=== PATIENT | male | born 1995 | race Caucasian/White ===

== ENCOUNTER 2019-11-30 10:31 | Inpatient (IN) | payer OTHER ==
--- NOTE | 2019-11-30 10:57 | BHS.RME ---
Substance Use & Tx History - Substance Use History Alcohol Substance amount: 1 pint Frequency of use: Less than 3 times per week Date of Last Use: 11/27/19 Cocaine (Crack) Substance amount: 1-2 bags Frequency of use: Less than 3 times per week Date of Last Use: 11/27/19 Opiates (Heroin) Substance amount: 10 bags Frequency of use: Daily Substance route: Injection (ex: intravenous or skin popping) Date of Last Use: 11/29/19 PCP Frequency of use: Once a month Date of Last Use: 11/16/19 Physical/Psych/Mental Status - Behavior General Behavior: Increased activity (restlessness, agitation) Eye Contact: Normal - Cooperativeness Cooperativeness: Cooperative - Thinking Thought Processes: Tight, Logical, Goal Directed Thought content: Future oriented - Physical Health Problems Is patient presently having any pain?: No Does patient presently have any injuries (include location): No Does patient currently have a fever: No Is patient : No COWS - Scale Resting Pulse: 1= [place] 81-100 Sweatin= Chills/Flushing Restless Observation: 1= Difficult to Sit Still Pupil Size: 0= Normal to Room Light Bone or Joint Aches: 1= Mild Discomfort
[2019-11-30 11:09] VITALS: BMI 20.5
--- NOTE | 2019-11-30 11:35 | HP ---
COWS - Scale Resting Pulse: 1= [place] 81-100 Sweatin= Chills/Flushing Restless Observation: 1= Difficult to Sit Still Pupil Size: 0= Normal to Room Light Bone or Joint Aches: 1= Mild Discomfort Runny Nose/ Eye Tearin= Nasal Congestion GI Upset > 30mins: 0= None Tremor Observation: 0= None Yawning Observation: 0= None Anxiety or Irritability: 2=Irritable/Anxious Goose Flesh Skin: 3=Piloerection COWS Score: 10 CIWA Score - Admission Criteria OASAS Guidelines: Admission for Medically Managed Detox: Requires at least one of the followin. CIWA greater than 12 2. Seizures within the past 24 hours 3. Delirium tremens within the past 24 hours 4. Hallucinations within the past 24 hours 5. Acute intervention needed for co occurring medical disorder 6. Acute intervention needed for co occurring psychiatric disorder 7. Severe withdrawal that cannot be handled at a lower level of care (continued vomiting, continued diarrhea, abnormal vital signs) requiring intravenous medication and/or fluids 8. Admitting History and Physical - Admission Chief Complaint: " I want to stop using heroin." History of Present Illness: 24 year old male with history of alcohol dependence, opioid dependence and cannabis use disorder and PCP use disorder. He is seeking detox after being at [facility] and gotten one dose of methadone but told there were no detox beds available. He was last here in 2015 but did not complete detox and signed AMA. Alcohol: 2 shots every other day last drank 3 days ago started at age of 17 Heroin 10-12 bags of heroin IV, last used yesterday and overdosed 2 years ago, he does not carry a narcan kit Cannabis: onses sporadically 1 time a month. 1 blunt, last used 3 days ago started at the age of 12 PCP uses once weekly 1-2 bagls and last used 1 week ago, started at the afge of 19 Nicotine: 1ppd started at 8 years old and last smoked today Psych: Depression, attempted suicide long time ago He is a high risk for overdose due to IV use and not carrying Narcan He needs structured environment to gain insight into his disorder. 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 History of Recent Travel: No Admission ROS [facility] - [facility] Allergies/Adverse Reactions: Allergies Allergy/AdvReac Type Severity Reaction Status Date / Time No Known Allergies Allergy Verified 11/30/19 11:03 Exam Limitations: No Limitations - Ebola screening Have you traveled outside of the country in the last 21 days: No Have you had contact with anyone from an Ebola affected area: No Have you been sick,other than usual withdrawal symptoms: No Do you have a fever: No - Review of Systems Constitutional: Chills EENT: reports: No Symptoms Reported Respiratory: reports: No Symptoms reported Cardiac: reports: No Symptoms Reported GI: reports: No Symptoms Reported : reports: No Symptoms Reported Musculoskeletal: reports: No Symptoms Reported Integumentary: reports: No Symptoms Reported Neuro: reports: No Symptoms reported Endocrine: reports: No Symptoms Reported Hematology: reports: No Symptoms Reported Psychiatric: reports: Judgement Intact, Mood/Affect Appropiate, Orientated x3 Other Systems: Reviewed and Negative Patient History - Patient Medical History Hx Anemia: No Hx Asthma: No Hx Chronic Obstructive Pulmonary Disease (COPD): No Hx Cancer: No Hx Cardiac Disorders: No Hx Congestive Heart Failure: No Hx Hypertension: No Hx Hypercholesterolemia: No Hx Pacemaker: No HX Cerebrovascular Accident: No Hx Seizures: No Hx Dementia: No Hx Diabetes: No Hx Gastrointestinal Disorders: No Hx Liver Disease: No Hx Genitourinary Disorders: No Hx Sexually Transmitted Disorders: No Hx Renal Disease (ESRD): No Hx Thyroid Disease: No Hx Hepatitis C: No Hx Depression: Yes Hx Suicide Attempt: Yes Hx Bipolar Disorder: No Hx Schizophrenia: No - Patient Surgical History Past Surgical History: No Hx Neurologic Surgery: No Hx Cataract Extraction: No Hx Cardiac Surgery: No Hx Lung Surgery: No Hx Breast Surgery: No Hx Breast Biopsy: No Hx Abdominal Surgery: No Hx Appendectomy: No Hx Cholecystectomy: No Hx Genitourinary Surgery: No Hx Section: No Hx Orthopedic Surgery: No Anesthesia Reaction: No - PPD History Previous Implant?: Yes Documented Results: Negative w/o proof Implanted On Prior R Admission?: Yes Date: 08/12/16 PPD to be Administered?: Yes - Smoking Cessation Smoking history: Current every day smoker Have you smoked in the past 12 months: Yes Aproximately how many cigarettes per day: 20 Cigars Per Day: 0 Hx Chewing Tobacco Use: No Initiated information on smoking cessation: Yes 'Breaking Loose' booklet given: 11/30/19 - Substances abused Alcohol Substance route: Oral Frequency: 1-2 times per week Amount used: 3 nips of vodka Age of first use: 19 Date of last use: 11/27/19 Heroin Substance route: Injection Frequency: Daily Amount used: 12 bags Age of first use: 16 Date of last use: 11/29/19 Admission Physical Exam BHS - Vital Signs Vital Signs: Vital Signs - 24 hr 11/30/19 11:04 Temperature 98.0 F Pulse Rate 86 Respiratory 18 Rate Blood Pressure 127/61 - Physical General Appearance: Yes: Mild Distress, Irritable, Anxious HEENTM: Yes: EOMI, Hearing grossly Normal, Normal ENT Inspection, Normocephalic , Normal Voice, ALEIDA, Pharynx Normal, Tm's normal Respiratory: Yes: Chest Non-Tender, Lungs Clear, Normal Breath Sounds, No Respiratory Distress, No Accessory Muscle Use Neck: Yes: No masses,lesions,Nodules, Supple, Trachea in good position, Other ( track renteria bilateral neck) Breast: Yes: Breast Exam Deferred Cardiology: Yes: Regular Rhythm, S1, S2, Tachycardia Abdominal: Yes: Normal Bowel Sounds, Non Tender, Flat, Soft Genitourinary: Yes: Within Normal Limits Back: Yes: Normal Inspection Musculoskeletal: Yes: full range of Motion, Gait Steady, Pelvis Stable Extremities: Yes: Normal Capillary Refill, Normal Inspection, Normal Range of Motion, Non-Tender, Other (track renteria bilateral antecubital fossae) Neurological: Yes: administrative supervisor II-XII NML intact, Fully Oriented, Motor Strength 5/5, Normal Mood/Affect, Normal Response Integumentary: Yes: Normal Color, Warm Lymphatic: Yes: Within Normal Limits - Diagnostic (1) Opioid dependence with withdrawal Current Visit: Yes Status: Acute (2) Nicotine dependence Current Visit: Yes Status: Chronic Qualifiers: Nicotine product type: cigarettes Substance use status: uncomplicated Qualified Code(s): F17.210 - Nicotine dependence, cigarettes, uncomplicated (3) Anxiety and depression Current Visit: Yes Status: Suspected Cleared for Admission [facility] - Detox or Rehab [facility] Level of Care: Medically Managed Detox Regimen/Protocol: Methadone Claeared for Rehab Admission: No Screened but not Admitted - Documentation of Visit Screened but not Admitted: No Breathalyzer - Breathalyzer Breathalyzer: 0 Urine Drug Screen - Test Device Lot number: [id number] Expiration date: 09/08/21 - Control Is test valid?: Yes - Results Drug screen NEGATIVE: No Urine drug screen results: ELENA-Cocaine, FEN-Fentanyl, MOP-Opiates, MTD-Methadone Inpatient Rehab Admission - Rehab Decision to Admit Inpatient rehab admission?: No
[2019-11-30] MEDS ORDERED: BISMUTH SUBSALICYLATE 262 MG/15 ML BTL PO PRN (11:41)
[2019-11-30] MEDS ORDERED: MENTHOL/PHENOL 1 EACH UD MM PRN (11:41)
[2019-11-30] MEDS ORDERED: MAG HYDROX/AL HYDROX/SIMETH 30 ML UNIT-DOSE CUP PO PRN (11:41)
[2019-11-30] MEDS ORDERED: ACETAMINOPHEN 325 MG TABLET (FP) PO PRN (11:41)
[2019-11-30] MEDS ORDERED: MELATONIN 5 MG TABLETS PO PRN (11:41)
[2019-11-30] MEDS ORDERED: MAGNESIUM HYDROX 2400MG/30ML ORAL SUSPENSION 30 ML CUP PO PRN (11:41)
[2019-11-30] MEDS ORDERED: IBUPROFEN 400 MG TABLET (FP) PO PRN (11:41)
[2019-11-30] MEDS ORDERED: METHOCARBAMOL 500 MG TABLET PO PRN (11:41)
[2019-11-30] MEDS ORDERED: hydrOXYzine PAMOATE 25 MG CAPSULE (FP) PO PRN (11:41)
[2019-11-30] MEDS ORDERED: cloNIDine HCL 0.1 MG TABLET PO PRN (11:41)
[2019-11-30] MEDS ORDERED: MAGNESIUM CITRATE 300 ML BOTTLE PO PRN (11:41)
[2019-11-30] MEDS ORDERED: METHADONE HCL 10 MG TABLET (FOR DETOX USE ONLY) PO ONE (12:03)
[2019-11-30] MEDS: NICOTINE 7 MG/24 HOURS TOPICAL PATCH TD SCH (12:24)
[2019-11-30 14:30] LABS: HEMATOCRIT 34.7 % (35.4-49); MCH 30.7 pg (25.7-33.7); MCHC 34.5 g/dl (32.0-35.9); MEAN CELL VOLUME 88.9 fl (80-96); MEAN PLT VOLUME 7.7 fl (7.5-11.1); PLATELET COUNT 304 K/MM3 (134-434); RBC 3.91 M/mm3 (4.00-5.60); WHITE BLOOD COUNT 7.9 K/mm3 (4.0-10.0)
[2019-11-30 14:40] LABS: ALBUMIN 3.5 g/dl (3.4-5.0); BILIRUBIN,TOTAL 0.4 mg/dL (0.2-1); BLOOD UREA NITROGEN 17.1 mg/dL (7-18); CALCIUM 8.6 mg/dL (8.5-10.1); CREATININE 0.9 mg/dL (0.55-1.3); POTASSIUM 3.5 mmol/L (3.5-5.1); TOT PROT 7.2 g/dl (6.4-8.2)
[2019-11-30] MEDS: ACETAMINOPHEN 325 MG TABLET (FP) PO PRN (19:22)
[2019-11-30] MEDS ORDERED: THIAMINE HCL 100 MG TABLET (FP) PO SCH (22:00)
[2019-12-01] MEDS ORDERED: METHADONE HCL 10 MG TABLET (FOR DETOX USE ONLY) ONE (09:26)
[2019-12-01] MEDS ORDERED: METHADONE HCL 5 MG TABLET (FOR DETOX USE ONLY) ONE (09:26)
[2019-12-01] MEDS ORDERED: METHADONE (DETOX) 20 MG, METHADONE (DETOX) 5 MG PO ONE (10:00)
[2019-12-01] MEDS ORDERED: PRENATAL VITAMINS W/ FOLIC ACID TABLET (FP) PO SCH (10:00)
[2019-12-01] MEDS: NICOTINE 7 MG/24 HOURS TOPICAL PATCH TD SCH (10:46)
[2019-12-01] MEDS ORDERED: PNEUMOC 13-VAL CONJ-DIP CRM/PF 0.5 ML DISP.SYRIN IM ONE (12:00)
[2019-12-01] MEDS ORDERED: PNEUMOCOCCAL 23 VACCINE 0.5 ML VIAL IM ONE (12:00)
--- NOTE | 2019-12-01 12:55 | CONSULT ---
[facility] Psychiatric Consult - Data Date of interview: 12/01/19 Admission source: [facility] Identifying data: Patient is a 24 year old single [place] male, father of three, unemployed, resides in a longterm, and is currently supported by food stamps. This is one of multiple admissions for patient. Patient admitted to for opiate dependence. Substance Abuse History: Smoking Cessation. Smoking history: Current every day smoker. Have you smoked in the past 12 months: Yes. Aproximately how many cigarettes per day: 20. Cigars Per Day: 0. Hx Chewing Tobacco Use: No. Initiated information on smoking cessation: Yes. 'Breaking Loose' booklet given : 11/30/19. - Substances abused. Alcohol. Substance route: Oral. Frequency: 1-2 times per week. Amount used: 3 nips of vodka. Age of first use : 19. Date of last use: 11/27/19. Heroin. Substance route: Injection. Frequency: Daily. Amount used: 12 bags. Age of first use: 16. Date of last use: 11/29/19 Medical History: Denies. Psychiatric History: Patient reports history of multiple psychiatric hospitalizations most recently in May of 2019 at [facility] [place] walking [place] the train [place] (unable to admit if it was a suicide attempt). He was admitted for one week and prescribed seroquel 300mg HS. Mr. Disla reports additional hospitalizations at various institutions including [facility], [facility], [facility], and [facility]. He reports past treatments with risperdal, depakote and xanax. Diagnosis of Bipolar II disorder. Mr. Disla reports history of poor compliance due to his history of substance abuse. History of three suicides attempt via overdose. Patient is not currently provided with psychiatric care. Reports taking seroquel five days ago which he received from a friend. At present patient reports feeling sad and is experiencing difficulty sleeping. Patient denies thoughts or urges to hurt self or others. Physical/Sexual Abuse/Trauma History: denies. Mental Status Exam - Mental Status Exam Alert and Oriented to: Time, Place, Person Cognitive Function: Good Patient Appearance: Well Groomed (Tattoo's on face) Mood: Withdrawn Affect: Mood Congruent Patient Behavior: Cooperative Speech Pattern: Appropriate Voice Loudness: Moderately Soft/Quiet Thought Process: Goal Oriented Thought Disorder: Not Present Hallucinations: Denies Suicidal Ideation: Denies Homicidal Ideation: Denies Insight/Judgement: Poor Sleep: Poorly Appetite: Fair Muscle strength/Tone: Normal Gait/Station: Normal Psychiatric Findings - Problem List ([place] 1, 2,3) (1) Cocaine dependence Status: Acute (2) Opioid dependence with withdrawal Status: Acute (3) Opiate dependence Status: Acute (4) Bipolar II disorder Status: Chronic (5) Substance induced mood disorder Status: Acute (6) Substance-induced sleep disorder Status: Acute - Initial Treatment Plan Initial Treatment Plan: Psychoeducation provided. Detoxification in progress. Will order seroquel 100mg HS. Benefits and side effects discussed. Verbal consent given.
[2019-12-01] MEDS: ACETAMINOPHEN 325 MG TABLET (FP) PO PRN (13:12)
--- NOTE | 2019-12-01 13:45 | PN ---
BHS COWS - Scale Resting Pulse: 0= [place] 80 or Below Sweatin= No chills or Flushing Restless Observation: 1= Difficult to Sit Still Pupil Size: 0= Normal to Room Light Bone or Joint Aches: 0= None Runny Nose/ Eye Tearin= None GI Upset > 30mins: 1= Stomach Cramp Tremor Observation of Outstretched Hands: 0= None Yawning Observation: 1= 1-2x During Session Anxiety or Irritability: 2=Irritable/Anxious Goose Flesh Skin: 3=Piloerection COWS Score: 8 BHS Progress Note (SOAP) Subjective: Stomach Upset, Anxious, Fatigue. Objective: PATIENT A & O X 3, OBSERVED AMBULATING ON DETOX UNIT UNASSISTED. IN NO ACUTE DISTRESS. 12/01/19 13:45 Vital Signs Temperature 97.7 F 12/01/19 12:30 Pulse Rate 71 12/01/19 12:30 Respiratory Rate 18 12/01/19 12:30 Blood Pressure 128/69 12/01/19 12:30 O2 Sat by Pulse Oximetry (%) Laboratory Tests 11/30/19 11/30/19 11/30/19 11:50 11:50 11:50 WBC 7.9 RBC 3.91 L Hgb 12.0 Hct 34.7 L D MCV 88.9 MCH 30.7 MCHC 34.5 RDW 13.0 Plt Count 304 MPV 7.7 Sodium 139 Potassium 3.5 Chloride 105 Carbon Dioxide 29 Anion Gap 5 L BUN 17.1 Creatinine 0.9 Est GFR (CKD-EPI)AfAm 136.14 Est GFR (CKD-EPI)NonAf 117.46 Random Glucose 107 H Calcium 8.6 Total Bilirubin 0.4 AST 10 L ALT 26 Alkaline Phosphatase 115 Total Protein 7.2 Albumin 3.5 RPR Titer HIV 1&2 Antibody Screen Negative HIV P24 Antigen Negative 11/30/19 11:50 WBC RBC Hgb Hct MCV MCH MCHC RDW Plt Count MPV Sodium Potassium Chloride Carbon Dioxide Anion Gap BUN Creatinine Est GFR (CKD-EPI)AfAm Est GFR (CKD-EPI)NonAf Random Glucose Calcium Total Bilirubin AST ALT Alkaline Phosphatase Total Protein Albumin RPR Titer Nonreactive HIV 1&2 Antibody Screen HIV P24 Antigen LABS NOTED. Assessment: 12/01/19 13:46 WITHDRAWAL SYMPTOMS. Plan: CONTINUE DETOX. PRN MYLANTA ORAL RECOMMENDED FOR STOMACH UPSET.
[2019-12-01 18:43] VITALS: PULSE 80
[2019-12-01] MEDS ORDERED: QUEtiapine FUMARATE 100 MG TABLET (FP) PO SCH (22:00)
[2019-12-01 22:20] VITALS: BP 132/74; TEMP 96.8
--- NOTE | 2019-12-02 00:18 | DS ---
[facility] Detox Discharge Summary Admission Date: 11/30/19 Discharge Date: 12/01/19 (Transferred to [facility]) - History Present History: Alcohol Dependence (Alcohol use disorder), Opioid Dependence Additional Comments: History of alcohol use disorder, opioid use disorder, cannabis use disorder and PCP use disorder. Presented seeking detox. Pertinent Past History: Hx depression and bipolar disorder. - Physical Exam Results Vital Signs: Vital Signs Temperature 96.8 F L 12/01/19 20:50 Pulse Rate 80 12/01/19 20:50 Respiratory Rate 19 12/01/19 20:50 Blood Pressure 132/74 12/01/19 20:50 O2 Sat by Pulse Oximetry (%) Pertinent Admission Physical Exam Findings: Admitted w/ withdrawal symptoms. Laboratory Last Values WBC 7.9 K/mm3 (4.0-10.0) 11/30/19 11:50 RBC 3.91 M/mm3 (4.00-5.60) L 11/30/19 11:50 Hgb 12.0 GM/dL (11.7-16.9) 11/30/19 11:50 Hct 34.7 % (35.4-49) L D 11/30/19 11:50 MCV 88.9 fl (80-96) 11/30/19 11:50 MCH 30.7 pg (25.7-33.7) 11/30/19 11:50 MCHC 34.5 g/dl (32.0-35.9) 11/30/19 11:50 RDW 13.0 % (11.9-15.9) 11/30/19 11:50 Plt Count 304 K/MM3 (134-434) 11/30/19 11:50 MPV 7.7 fl (7.5-11.1) 11/30/19 11:50 Sodium 139 mmol/L (136-145) 11/30/19 11:50 Potassium 3.5 mmol/L (3.5-5.1) 11/30/19 11:50 Chloride 105 mmol/L (98-107) 11/30/19 11:50 Carbon Dioxide 29 mmol/L (21-32) 11/30/19 11:50 Anion Gap 5 MMOL/L (8-16) L 11/30/19 11:50 BUN 17.1 mg/dL (7-18) 11/30/19 11:50 Creatinine 0.9 mg/dL (0.55-1.3) 11/30/19 11:50 Est GFR (CKD-EPI)AfAm 136.14 11/30/19 11:50 Est GFR (CKD-EPI)NonAf 117.46 11/30/19 11:50 Random Glucose 107 mg/dL (74-106) H 11/30/19 11:50 Calcium 8.6 mg/dL (8.5-10.1) 11/30/19 11:50 Total Bilirubin 0.4 mg/dL (0.2-1) 11/30/19 11:50 AST 10 U/L (15-37) L 11/30/19 11:50 ALT 26 U/L (13-61) 11/30/19 11:50 Alkaline Phosphatase 115 U/L (45-117) 11/30/19 11:50 Total Protein 7.2 g/dl (6.4-8.2) 11/30/19 11:50 Albumin 3.5 g/dl (3.4-5.0) 11/30/19 11:50 RPR Titer Nonreactive (NONREACTIVE) 11/30/19 11:50 HIV 1&2 Antibody Screen Negative 11/30/19 11:50 HIV P24 Antigen Negative 11/30/19 11:50 Labs reviewed. - Treatment Hospital Course: Detox Protocol Followed Patient has Accepted a Rehab Referral to: Transferred to [facility] for mental health evaluation and stabilization - Medication Discharge Medications: Ambulatory Orders NK [No Known Home Medication] 08/10/16 - Diagnosis (1) Alcohol abuse Status: Chronic (2) PCP (phencyclidine) abuse Status: Chronic (3) Opioid dependence with withdrawal Status: Acute (4) Nicotine dependence Status: Chronic Qualifiers: Nicotine product type: cigarettes Substance use status: uncomplicated Qualified Code(s): F17.210 - Nicotine dependence, cigarettes, uncomplicated - AMA Did Patient Leave Against Medical Advice: No
--- NOTE | 2019-12-02 01:44 | PN ---
[facility] Progress Note Note: Patient was verbally aggressive and threatening toward patients and staff. Patient refusing to be redirected despite efforts to de-escalate the situation. Discussion w/ Security JefSalma RN, and nursing Finishing Wire Sawyer Evens Rincon RN held regarding safety issues for other patients and staff, as well as the well-being of this particular patient discussed. Patient w/ a history of bipolar disorder with multiple mental health admissions. Patient has not been compliant w/ medications prior to admission, and now that is being tapered off opiates and alcohol, may be de-compensating. Patient agreed to go to [facility] for mental health evaluation and treatment. Patient being discharged and transferred. Patient escorted off unit w/ [facility] security, [place] police, and EMS.
[2019-12-02] MEDS ORDERED: METHADONE HCL 10 MG TABLET (FOR DETOX USE ONLY) PO ONE (10:00)
[2019-12-03] MEDS ORDERED: METHADONE (DETOX) 10 MG, METHADONE (DETOX) 5 MG PO ONE (10:00)
[2019-12-04] MEDS ORDERED: METHADONE HCL 10 MG TABLET (FOR DETOX USE ONLY) PO ONE (10:00)
[2019-12-05] MEDS ORDERED: METHADONE HCL 5 MG TABLET (FOR DETOX USE ONLY) PO ONE (06:00)
== END 2019-12-01 11:50 | DRG 773 ==
LOC: YASAS 10:31 → Y6N 11:50
PROVIDERS: ADMIT Allergy & Immunology; ATTEND Allergy & Immunology
PROC: HZ2ZZZZ Detoxification Services for Substance Abuse Treatment (ICD-10-PCS; principal; 2019-11-30)
DX: F10.230 Alcohol dependence with withdrawal, uncomplicated (principal); F11.23 Opioid dependence with withdrawal; F16.20 Hallucinogen dependence, uncomplicated; F12.20 Cannabis dependence, uncomplicated; F17.210 Nicotine dependence, cigarettes, uncomplicated; F19.282 Other psychoactive substance dependence with psychoactive substance-induced sleep disorder; F19.24 Other psychoactive substance dependence with psychoactive substance-induced mood disorder; Z91.5 Personal history of self-harm
CPT/HCPCS: 36415; 80053; 85027; 86593; 87389

== ENCOUNTER 2021-02-09 18:03 | Inpatient (IN) | payer OTHER ==
[2021-02-09 23:06] VITALS: BMI 25.0
[2021-02-09] MEDS ORDERED: IBUPROFEN 400 MG TABLET (FP) PO PRN (23:18)
[2021-02-09] MEDS ORDERED: MAGNESIUM HYDROX 2400MG/30ML ORAL SUSPENSION 30 ML CUP PO PRN (23:18)
[2021-02-09] MEDS ORDERED: MAGNESIUM CITRATE 300 ML BOTTLE PO PRN (23:18)
[2021-02-09] MEDS ORDERED: METHADONE HCL 10 MG TABLET (FOR DETOX USE ONLY) PO ONE (23:18)
[2021-02-09] MEDS ORDERED: MAG HYDROX/AL HYDROX/SIMETH 30 ML UNIT-DOSE CUP PO PRN (23:18)
[2021-02-09] MEDS ORDERED: cloNIDine HCL 0.1 MG TABLET PO PRN (23:18)
[2021-02-09] MEDS ORDERED: ACETAMINOPHEN 325 MG TABLET (FP) PO PRN ×2 (23:18)
[2021-02-09] MEDS ORDERED: ONDANSETRON *ODT* 4 MG TABLET SL PRN (23:18)
[2021-02-09] MEDS ORDERED: MENTHOL/PHENOL 1 EACH UD MM PRN (23:18)
[2021-02-09] MEDS ORDERED: NICOTINE POLACRILEX 4 MG GUM BUC PRN (23:18)
[2021-02-09] MEDS ORDERED: BISMUTH SUBSALICYLATE 524 MG/30 ML UD PO PRN (23:18)
[2021-02-10] MEDS: METHOCARBAMOL 500 MG TABLET PO PRN (00:57)
[2021-02-10] MEDS: hydrOXYzine PAMOATE 25 MG CAPSULE (FP) PO SCH ×5 (06:15→22:15)
[2021-02-10] MEDS ORDERED: METHADONE HCL 5 MG TABLET (FOR DETOX USE ONLY) ONE (08:41)
[2021-02-10] MEDS ORDERED: METHADONE HCL 10 MG TABLET (FOR DETOX USE ONLY) ONE (08:41)
[2021-02-10] MEDS ORDERED: METHADONE (DETOX) 20 MG, METHADONE (DETOX) 5 MG PO ONE (10:00)
[2021-02-10 10:05] LABS: HEMATOCRIT 34.3 % (35.4-49); HEMOGLOBIN 11.5 GM/dL (11.7-16.9); MCH 30.1 pg (25.7-33.7); MCHC 33.6 g/dl (32.0-35.9); MEAN CELL VOLUME 89.8 fl (80-96); MEAN PLT VOLUME 7.8 fl (7.5-11.1); PLATELET COUNT 265 K/MM3 (134-434); RBC 3.82 M/mm3 (4.00-5.60); RDW 13.9 % (11.9-15.9); WHITE BLOOD COUNT 5.7 K/mm3 (4.0-10.0)
[2021-02-10 10:16] LABS: ALBUMIN 3.2 g/dl (3.4-5.0); BLOOD UREA NITROGEN 13.1 mg/dL (7-18); CALCIUM 8.3 mg/dL (8.5-10.1)
[2021-02-10 10:20] LABS: CREATININE 0.9 mg/dL (0.55-1.3)
[2021-02-10 10:21] LABS: BILIRUBIN,TOTAL 0.2 mg/dL (0.2-1); TOT PROT 6.4 g/dl (6.4-8.2)
[2021-02-10] MEDS: NICOTINE 21 MG/24 HOURS TOPICAL PATCH TD SCH (10:44)
[2021-02-10] MEDS: PRENATAL VITAMINS W/ FOLIC ACID TABLET (FP) PO SCH (10:44)
[2021-02-10] MEDS: MELATONIN 5 MG TABLETS PO SCH (22:15)
[2021-02-10] MEDS: THIAMINE HCL 100 MG TABLET (FP) PO SCH (22:15)
[2021-02-10] MEDS: QUEtiapine FUMARATE 100 MG TABLET (FP) PO SCH (22:15)
[2021-02-11] MEDS: hydrOXYzine PAMOATE 25 MG CAPSULE (FP) PO SCH ×5 (05:53→22:11)
[2021-02-11] MEDS ORDERED: diazePAM 5 MG TABLET PO PRN (08:31)
[2021-02-11] MEDS ORDERED: METHADONE HCL 10 MG TABLET (FOR DETOX USE ONLY) PO ONE (10:00)
[2021-02-11] MEDS: PRENATAL VITAMINS W/ FOLIC ACID TABLET (FP) PO SCH (11:54)
[2021-02-11] MEDS: NICOTINE 21 MG/24 HOURS TOPICAL PATCH TD SCH (11:56)
[2021-02-11] MEDS: THIAMINE HCL 100 MG TABLET (FP) PO SCH (22:11)
[2021-02-11] MEDS: QUEtiapine FUMARATE 100 MG TABLET (FP) PO SCH (22:11)
[2021-02-11] MEDS: MELATONIN 5 MG TABLETS PO SCH (22:11)
[2021-02-12 06:07] LABS: SARS-CoV-2 NAA Not Detected (Not Detected)
[2021-02-12] MEDS: hydrOXYzine PAMOATE 25 MG CAPSULE (FP) PO SCH ×3 (06:17→14:49)
[2021-02-12] MEDS ORDERED: METHADONE (DETOX) 10 MG, METHADONE (DETOX) 5 MG PO ONE (10:00)
[2021-02-12] MEDS ORDERED: METHADONE HCL 5 MG TABLET (FOR DETOX USE ONLY) ONE (10:17)
[2021-02-12] MEDS ORDERED: METHADONE HCL 10 MG TABLET (FOR DETOX USE ONLY) ONE (10:17)
[2021-02-12] MEDS: NICOTINE 21 MG/24 HOURS TOPICAL PATCH TD SCH (10:19)
[2021-02-12] MEDS: PRENATAL VITAMINS W/ FOLIC ACID TABLET (FP) PO SCH (10:19)
[2021-02-12] MEDS: METHOCARBAMOL 500 MG TABLET PO PRN (12:29)
[2021-02-12 13:03] VITALS: BP 99/61; PULSE 83; TEMP 97.3
[2021-02-13] MEDS ORDERED: METHADONE HCL 10 MG TABLET (FOR DETOX USE ONLY) PO ONE (10:00)
[2021-02-14] MEDS ORDERED: METHADONE HCL 5 MG TABLET (FOR DETOX USE ONLY) PO ONE (06:00)
== END 2021-02-12 15:54 | disposition left against medical advice (07) | DRG 770 ==
LOC: YASAS 18:03 → Y3N 23:24
PROVIDERS: ADMIT Allergy & Immunology; ATTEND Allergy & Immunology
PROC: HZ2ZZZZ Detoxification Services for Substance Abuse Treatment (ICD-10-PCS; principal; 2021-02-09)
DX: F11.23 Opioid dependence with withdrawal (principal); F15.10 Other stimulant abuse, uncomplicated; F17.210 Nicotine dependence, cigarettes, uncomplicated; F31.9 Bipolar disorder, unspecified; F39 Unspecified mood [affective] disorder; F19.24 Other psychoactive substance dependence with psychoactive substance-induced mood disorder; F41.8 Other specified anxiety disorders; G47.00 Insomnia, unspecified; M54.5 Low back pain; G89.29 Other chronic pain; Z62.810 Personal history of physical and sexual abuse in childhood; Z56.0 Unemployment, unspecified; Z59.0 Homelessness; Z91.19 Patient's noncompliance with other medical treatment and regimen
CPT/HCPCS: 36415; 80053; 85027; 86780; C9803; U0003; U0005